=== PATIENT | male | born 1980 | race African-American/Black ===

== ENCOUNTER 2019-04-29 15:35 | Emergency (ER) | payer OTHER ==
[~2019-04-29] VITALS: Ht 167.6 cm; Wt 77.1 kg
[2019-04-29 15:36] VITALS: BP 127/77
[2019-04-29] MEDS ORDERED: ACCUNEB SO1.25 MG/1 INH (15:45)
== END 2019-04-29 16:08 | disposition home or self-care (01) ==
LOC: ER 15:35
DX: R21 Rash and other nonspecific skin eruption (principal); J45.909 Unspecified asthma, uncomplicated; R05 Cough

== ENCOUNTER 2020-01-04 19:59 | Emergency (ER) | payer OTHER ==
[~2020-01-04] VITALS: Ht 167.6 cm; Wt 72.6 kg
[~2020-01-04 19:59] MED LIST: ACCUNEB SO1.25 MG/1 INH
[2020-01-04] MEDS ORDERED: NORFLEX100 MG PO (22:06)
[2020-01-04] MEDS ORDERED: NAPROSYN500 MG PO (22:06)
[2020-01-04 22:21] VITALS: BP 129/95
== END 2020-01-04 22:17 | disposition home or self-care (01) ==
LOC: ER 19:59
DX: S46.912A Strain of unspecified muscle, fascia and tendon at shoulder and upper arm level, left arm, initial encounter (principal); S16.1XXA Strain of muscle, fascia and tendon at neck level, initial encounter; J45.909 Unspecified asthma, uncomplicated; V89.2XXA Person injured in unspecified motor-vehicle accident, traffic, initial encounter; Y93.89 Activity, other specified; Y92.89 Other specified places as the place of occurrence of the external cause; Y99.8 Other external cause status